=== PATIENT | male | born 1940 | race Caucasian/White ===

== ENCOUNTER 2024-03-11 14:49 | Emergency (ER) | payer MEDICARE ==
[~2024-03-11] VITALS: Ht 175.3 cm; Wt 72.6 kg
[2024-03-11 15:01] VITALS: BP 93/46; PULSE 83; RESP 20; TEMP 97.7; O2SAT 93
[2024-03-11] MEDS: ACETAMINOPHEN 325 MG TAB PO ONE (16:23)
[2024-03-11 16:24] LABS: BASOPHILS % (AUTO) 0.3 % (0.0-2.0); EOSINOPHILS # (AUTO) 0.3 K/uL (0-0.4); EOSINOPHILS % (AUTO) 4.8 % (0.0-4.0); HEMATOCRIT 35.6 % (36-52); HEMOGLOBIN 11.7 g/dL (12.0-18.0); LYMPHOCYTES # (AUTO) 1.3 K/uL (2.0-11.5); LYMPHOCYTES % (AUTO) 22.5 % (20.5-51.1); MEAN CORPUSCULAR HEMOGLOBIN 29 pg (27-31); MEAN CORPUSCULAR HGB CONC 33 g/dL (33-37); MONOCYTES # (AUTO) 0.9 K/uL (0.8-1.0); MONOCYTES % (AUTO) 15.9 % (1.7-9.3); NEUTROPHILS # (AUTO) 3.3 K/uL (1.8-7.7); NEUTROPHILS % (AUTO) 56.5 % (42.2-75.2); PLATELET COUNT (AUTO) 304 K/uL (140-450); RED BLOOD CELL COUNT(AUTO) 4.05 MIL/uL (4.20-6.10); WHITE BLOOD COUNT (AUTO) 5.8 K/uL (4.8-10.8)
[2024-03-11 16:44] LABS: ANION GAP 10.5 (8-16); CALCIUM 8.8 mg/dL (8.5-10.1); CARBON DIOXIDE 29.6 mmol/L (21-32); CHLORIDE 99 mmol/L (98-107); CREATININE 0.8 mg/dL (0.6-1.3); GLUCOSE 124 mg/dL (74-106); POTASSIUM 3.1 mmol/L (3.5-5.1); SODIUM SERUM 136 mmol/L (136-145); UREA NITROGEN, BLOOD 11 mg/dL (7-18)
[2024-03-11] MEDS: POTASSIUM CHLORIDE 10 MEQ TABER PO ONE (17:05)
[2024-03-11 18:33] VITALS: BP 127/71; PULSE 85; RESP 16; TEMP 97.7; O2SAT 97
== END 2024-03-11 18:33 | disposition home or self-care (01) ==
LOC: MED 14:49
DX: M16.12 Unilateral primary osteoarthritis, left hip (principal); E87.6 Hypokalemia; I10 Essential (primary) hypertension; F03.90 Unspecified dementia, unspecified severity, without behavioral disturbance, psychotic disturbance, mood disturbance, and anxiety
CPT/HCPCS: 36415; 73700; 80048; 85025; 99284